=== PATIENT | male | born 1950 | race Caucasian/White ===

== ENCOUNTER 2018-01-22 11:39 | Emergency (ER) | payer SELFPAY ==
[~2018-01-22] VITALS: Ht 177.8 cm; Wt 95.2 kg
[~2018-01-22 11:39] MED LIST: ASPI81CH PO; ASPI81EC; LEVO750 PO; MAGCHL64ER PO; MULVITMIND PO; OSEL75CA PO; POTA8 PO; TUSSIN DM SYRU PO; Tylenol325 MG PO
== END 2018-01-22 12:44 | disposition home or self-care (01) ==
LOC: ER 11:39
DX: M79.89 Other specified soft tissue disorders (principal); Z79.82 Long term (current) use of aspirin; Z79.899 Other long term (current) drug therapy; F17.210 Nicotine dependence, cigarettes, uncomplicated
CPT/HCPCS: 99281

== ENCOUNTER 2020-11-28 09:32 | Day surgery (SDC) | payer MEDICARE ==
[~2020-11-28] VITALS: Ht 177.8 cm; Wt 113.5 kg
--- NOTE | 2020-11-28 10:10 | NUR ---
History, Chart, Medications and Allergies reviewed before start of procedure. Patient states colon prep results clear. Patient States Post-Procedure ride home has been arranged.
[2020-11-28] MEDS ORDERED: ATOR40TA PO (10:17)
[2020-11-28] MEDS ORDERED: Nexium40 MG PO (10:17)
--- NOTE | 2020-11-28 10:49 | NUR ---
11/28/20 1049 Bebeto Gonzalez PATIENT DETERMINED TO BE ASA APPROPRIATE FOR PROPOFOL SEDATION PRIOR TO START OF PROCEDURE BY DR. PIERRE. Bite Block Placed. 3-LEAD EKG REVIEWED WITH PHYSICIAN PRIOR TO START OF PROCEDURE. Patient to ENDO 1. History, Chart, Medications and Allergies reviewed before start of procedure. HURRICAINE SPRAY TO OROPHARYX. MONITOR INTACT WITH CONTINUOUS PULSE OXIMETRY AND INTERMITTENT BP. O2 VIA N/C INTACT THROUGHOUT SEDATION/PROCEDURE.
== END 2020-11-28 22:45 | disposition home or self-care (01) ==
LOC: ORSCMMR 09:32 → EDBD 09:32 → ORSCMMR 09:33 → ORD 10:30 → ORSCMMR 22:45
PROVIDERS: Internal Medicine Gastroenterology
PROC: 0DB58ZX Excision of Esophagus, Via Natural or Artificial Opening Endoscopic, Diagnostic (ICD-10-PCS; principal; 2020-11-28 10:30)
PROC: 0DB48ZX Excision of Esophagogastric Junction, Via Natural or Artificial Opening Endoscopic, Diagnostic (ICD-10-PCS; principal; 2020-11-28 10:30)
PROC: 0DB68ZX Excision of Stomach, Via Natural or Artificial Opening Endoscopic, Diagnostic (ICD-10-PCS; principal; 2020-11-28 10:30)
PROC: 0DBM8ZX Excision of Descending Colon, Via Natural or Artificial Opening Endoscopic, Diagnostic (ICD-10-PCS; 2020-11-28 10:30)
PROC: 0DBP8ZX Excision of Rectum, Via Natural or Artificial Opening Endoscopic, Diagnostic (ICD-10-PCS; 2020-11-28 10:30)
PROC: 0DBK8ZX Excision of Ascending Colon, Via Natural or Artificial Opening Endoscopic, Diagnostic (ICD-10-PCS; 2020-11-28 10:30)
PROC: 0DBL8ZX Excision of Transverse Colon, Via Natural or Artificial Opening Endoscopic, Diagnostic (ICD-10-PCS; 2020-11-28 10:30)
PROC: 0DBN8ZZ Excision of Sigmoid Colon, Via Natural or Artificial Opening Endoscopic (ICD-10-PCS; 2020-11-28 10:30)
DX: K21.9 Gastro-esophageal reflux disease without esophagitis (principal); Z12.11 Encounter for screening for malignant neoplasm of colon; K62.1 Rectal polyp; K63.5 Polyp of colon; D12.5 Benign neoplasm of sigmoid colon; I25.10 Atherosclerotic heart disease of native coronary artery without angina pectoris; I10 Essential (primary) hypertension; Z79.82 Long term (current) use of aspirin; Z79.899 Other long term (current) drug therapy
CPT/HCPCS: 88305; 88342; A9270; J2704; J7120

== ENCOUNTER 2021-03-11 20:27 | Emergency (ER) | payer MEDICARE ==
[~2021-03-11] VITALS: Ht 180.3 cm; Wt 108.9 kg
[~2021-03-11 20:27] MED LIST changes: +ATOR40TA PO; +Nexium40 MG PO
[2021-03-11 20:53] LABS: BASOPHILS ABSOLUTE AUTO 0.07 K/mm3 (0.00-0.23); BASOPHILS PERCENT AUTO 1 % (0-2); EOSINOPHILS ABSOLUTE AUTO 0.36 K/mm3 (0.00-0.68); EOSINOPHILS PERCENT AUTO 4 % (0-6); Hematocrit 48.3 % (37.0-53.0); Hemoglobin 15.7 g/dL (13.5-17.5); IMMATURE GRAN ABSOLUTE AUTO 0.04 K/mm3 (0.00-0.10); IMMATURE GRAN PERCENT AUTO 0 % (0-1); LYMPHOCYTES ABSOLUTE AUTO 3.04 K/mm3 (0.84-5.20); LYMPHOCYTES PERCENT AUTO 33 % (21-46); MONOCYTES ABSOLUTE AUTO 0.81 K/mm3 (0.16-1.47); MONOCYTES PERCENT AUTO 9 % (4-13); Mean Corpuscular HGB 31.7 pg (26.0-34.0); Mean Corpuscular HGB Conc 32.5 g/dL (31.5-36.5); Mean Corpuscular Volume 98 fL (80-100); Mean Platelet Volume 10.2 fL (9.1-12.4); NEUTROPHILS ABSOLUTE AUTO 4.78 K/mm3 (1.96-9.15); NEUTROPHILS PERCENT AUTO 53 % (41-73); Platelet Count 175 K/mm3 (150-400); RDW Coefficient Variation 12.7 % (11.7-14.2); RDW Standard Deviation 45.5 fL (35.1-46.3); Red Blood Cell Count 4.95 M/mm3 (4.30-5.90)
[2021-03-11 21:14] LABS: Alanine Aminotransfer (ALT/SGP 52 U/L (12-78); Albumin, Blood 3.7 g/dL (3.4-5.0); Albumin/Globulin Ratio 0.9 (0.8-1.8); Alk Phos 122 U/L (50-136); Anion Gap 5 mmol/L (6-16); Aspartate Aminotrans (AST/SGOT 35 U/L (12-37); Bilirubin, Total 0.4 mg/dL (0.1-1.0); Blood Urea Nitrogen 18 mg/dL (8-24); Bun/Creatinine Ratio 19.5 (12.0-20.0); CO2, Blood 29 mmol/L (21-32); Calcium, Blood 8.9 mg/dL (8.5-10.1); Chloride, Blood 103 mmol/L (98-108); Creatinine, Blood 0.92 mg/dL (0.60-1.20); Globulin, Blood 4.1 g/dL (2.2-4.0); Glomerular Filtration Rate >60 (60-); Glucose, Blood 147 mg/dL (70-99); Potassium, Blood 4.1 mmol/L (3.5-5.5); Sodium, Blood 137 mmol/L (136-145); Total Protein, Blood 7.8 g/dL (6.4-8.2); Troponin I <0.015 ng/mL (0.000-0.040)
[2021-03-11 21:20] LABS: Prothrombin Time Results 10.8 Sec (9.7-11.5)
== END 2021-03-11 22:42 | disposition home or self-care (01) ==
LOC: ER 20:27 → EDBD 20:27 → ER 22:42
PROVIDERS: Physician Assistant
DX: S44.92XA Injury of unspecified nerve at shoulder and upper arm level, left arm, initial encounter (principal); F17.210 Nicotine dependence, cigarettes, uncomplicated; Z79.82 Long term (current) use of aspirin; Z79.899 Other long term (current) drug therapy; X58.XXXA Exposure to other specified factors, initial encounter
CPT/HCPCS: 36415; 70450; 70496; 80053; 84484; 85025; 85610; 93005; 93010; 99284-25; Q9967

== ENCOUNTER 2021-07-24 06:09 | Day surgery (SDC) | payer MEDICARE ==
[2021-07-24] MEDS ORDERED: Bisoprolol Fumar5 MG PO (07:04)
[2021-07-24] MEDS ORDERED: LISI5 PO (07:05)
[2021-07-24] MEDS ORDERED: CLOP75 PO (07:05)
--- NOTE | 2021-07-24 08:48 | NUR ---
PT AWAKE AND VERBALIZING WELL. PT ABLE TO TAKE PO LIQ /S DIFFICULTY. IV REMOVED. PT VERBLIZED UNDERSTANDING OF WRITTEN AND VERBAL D/C INST.
== END 2021-07-24 23:09 | disposition home or self-care (01) ==
LOC: MHTC 06:09
DX: G45.9 Transient cerebral ischemic attack, unspecified (principal); I47.2 Ventricular tachycardia; I25.10 Atherosclerotic heart disease of native coronary artery without angina pectoris; I10 Essential (primary) hypertension; J44.9 Chronic obstructive pulmonary disease, unspecified; E78.5 Hyperlipidemia, unspecified; Z95.1 Presence of aortocoronary bypass graft
CPT/HCPCS: 93312; 93325; A9270; J2250; J2704; J7030

== ENCOUNTER 2024-08-26 20:24 | Observation (INO) | payer MEDICARE ==
[~2024-08-26] VITALS: Ht 177.8 cm; Wt 82.5 kg
[~2024-08-26 20:24] MED LIST changes: +Bisoprolol Fumar5 MG PO; +CLOP75 PO; +LISI5 PO; +METO50ER PO
[2024-08-26] MEDS ORDERED: Aspirin325 MG PO (21:11)
[2024-08-26] MEDS ORDERED: ALBU90OI INH (21:12)
[2024-08-26] MEDS ORDERED: ATOR40TA PO (21:13)
[2024-08-26] MEDS ORDERED: GABA100 PO (21:13)
[2024-08-26 21:14] LABS: BASOPHILS ABSOLUTE AUTO 0.06 K/mm3 (0.00-0.23); BASOPHILS PERCENT AUTO 1 % (0-2); EOSINOPHILS ABSOLUTE AUTO 0.17 K/mm3 (0.00-0.68); EOSINOPHILS PERCENT AUTO 2 % (0-6); Hematocrit 46.1 % (37.0-53.0); Hemoglobin 15.5 g/dL (13.5-17.5); IMMATURE GRAN ABSOLUTE AUTO 0.02 K/mm3 (0.00-0.10); IMMATURE GRAN PERCENT AUTO 0 % (0-1); LYMPHOCYTES ABSOLUTE AUTO 2.32 K/mm3 (0.84-5.20); LYMPHOCYTES PERCENT AUTO 30 % (21-46); MONOCYTES PERCENT AUTO 9 % (4-13); Mean Corpuscular HGB 32.3 pg (26.0-34.0); Mean Corpuscular HGB Conc 33.6 g/dL (31.5-36.5); Mean Corpuscular Volume 96 fL (80-100); Mean Platelet Volume 11.2 fL (9.1-12.4); NEUTROPHILS PERCENT AUTO 57 % (41-73); Platelet Count 106 K/mm3 (150-400); RDW Coefficient Variation 13.5 % (11.7-14.2); RDW Standard Deviation 48.4 fL (35.1-46.3); White Blood Cell Count 7.67 K/mm3 (4.00-11.30)
[2024-08-26] MEDS ORDERED: ESOM20 PO (21:14)
[2024-08-26] MEDS ORDERED: JARDIANCE10 MG PO (21:14)
[2024-08-26] MEDS ORDERED: SPIRIVA RESPIMAT4 G3 INH (21:15)
[2024-08-26] MEDS ORDERED: TADA10TA (21:16)
[2024-08-26] MEDS ORDERED: METO100ER PO (21:17)
[2024-08-26] MEDS ORDERED: METO50ER PO (21:17)
[2024-08-26 21:25] LABS: International Normalized Ratio 1.13
[2024-08-26 21:43] LABS: Albumin, Blood 3.2 g/dL (3.4-5.0); Albumin/Globulin Ratio 0.8 (0.8-1.8); Bilirubin, Total 0.6 mg/dL (0.1-1.0); Bun/Creatinine Ratio 17.8 (12.0-20.0); Creatinine, Blood 0.79 mg/dL (0.60-1.20); Globulin, Blood 4.1 g/dL (2.2-4.0); Potassium, Blood 4.1 mmol/L (3.5-5.5); Total Protein, Blood 7.3 g/dL (6.4-8.2)
[2024-08-26] MEDS ORDERED: FLU VACC TS2024-25(6MOS UP)/PF 45 MCG/0.5 ML SYRINGE IM ONE (22:45)
[2024-08-26] MEDS ORDERED: Ondansetron HCl 2 MG / ML 2ML Vial IV PRN (22:45)
[2024-08-26] MEDS ORDERED: Acetaminophen 325 MG TABLET PO PRN (22:45)
[2024-08-26] MEDS ORDERED: Tiotropium Bromide 2.5 MCG/ACT MIST INHAL (10 ACT/4 GM) INH SCH (22:50)
[2024-08-26] MEDS ORDERED: Gabapentin 100 MG Cap PO PRN (22:50)
[2024-08-27 00:37] VITALS: BP 122/98
[2024-08-27] MEDS ORDERED: Albuterol HFA200 ACT/6.7 GM INH INH PRN (00:45)
--- NOTE | 2024-08-27 04:00 | NUR ---
SHIFT SUMMARY PATIENT HAS SLEPT IN LONG INTERVALS SINCE ADMISSION. EVEN THOUGH HE IS SOUND ASLEEP HIS HR ON TELE IS 120'S AND IS ST @ 122.
--- NOTE | 2024-08-27 04:15 | NUR ---
REGARDING SUSTAINED TACHYCARDIC HR SINCE ADMIT TO THE FLOOR. UNLESS THE RATE CREEPS UP TO THE 130'S IT IS ALRIGHT TO JUST WATCH AND NOT CONTACT HOSPITALIST, PER LOW THAPA, CHARGE.
[2024-08-27 04:52] VITALS: BP 108/89
[2024-08-27 05:11] LABS: BASOPHILS ABSOLUTE AUTO 0.05 K/mm3 (0.00-0.23); BASOPHILS PERCENT AUTO 1 % (0-2); EOSINOPHILS ABSOLUTE AUTO 0.18 K/mm3 (0.00-0.68); EOSINOPHILS PERCENT AUTO 3 % (0-6); Hematocrit 46.2 % (37.0-53.0); Hemoglobin 15.4 g/dL (13.5-17.5); IMMATURE GRAN ABSOLUTE AUTO 0.02 K/mm3 (0.00-0.10); IMMATURE GRAN PERCENT AUTO 0 % (0-1); LYMPHOCYTES ABSOLUTE AUTO 2.32 K/mm3 (0.84-5.20); LYMPHOCYTES PERCENT AUTO 32 % (21-46); MONOCYTES ABSOLUTE AUTO 0.75 K/mm3 (0.16-1.47); MONOCYTES PERCENT AUTO 10 % (4-13); Mean Corpuscular HGB 32.2 pg (26.0-34.0); Mean Corpuscular HGB Conc 33.3 g/dL (31.5-36.5); Mean Corpuscular Volume 97 fL (80-100); Mean Platelet Volume 10.9 fL (9.1-12.4); NEUTROPHILS ABSOLUTE AUTO 3.99 K/mm3 (1.96-9.15); NEUTROPHILS PERCENT AUTO 55 % (41-73); Platelet Count 99 K/mm3 (150-400); RDW Coefficient Variation 13.5 % (11.7-14.2); RDW Standard Deviation 48.4 fL (35.1-46.3); Red Blood Cell Count 4.79 M/mm3 (4.30-5.90); White Blood Cell Count 7.31 K/mm3 (4.00-11.30)
[2024-08-27 05:41] LABS: CHOL/HDL RATIO 2.6; Cholesterol 95 mg/dL (50-200); HDL Cholesterol 36 mg/dL (>39); LDL/HDL RATIO 1.1; Low Density Lipoprotein Chol 41 mg/dL (0-110); Triglycerides 89 mg/dL (30-160); Very Low Density Lipoprot Chol 18 mg/dL (6-32)
[2024-08-27 05:42] LABS: Albumin, Blood 2.9 g/dL (3.4-5.0); Albumin/Globulin Ratio 0.7 (0.8-1.8); Bilirubin, Total 0.7 mg/dL (0.1-1.0); Bun/Creatinine Ratio 16.2 (12.0-20.0); Calcium, Blood 9.1 mg/dL (8.5-10.1); Creatinine, Blood 0.74 mg/dL (0.60-1.20); Total Protein, Blood 6.9 g/dL (6.4-8.2)
[2024-08-27] MEDS ORDERED: Pantoprazole Sodium 40 MG Tab PO SCH (06:00)
[2024-08-27 07:17] VITALS: BP 105/76
--- NOTE | 2024-08-27 08:33 | NUR ---
PATIENT HAS OUTPATIENT PFT SCHEDULED @ 1000 TODAY; HAS BEEN WAITING FOR THIS APPT FOR >1 MONTH TODAY. WONDERING IF THIS CAN BE DONE WHILE HERE. LEFT MESSAGE WITH MIKEY Epps RT. CALL TO DR SALGADO WHO DOES NOT BELIEVE PATIENT WILL BE DISCHARGED BEFORE 1000. DAUGHTER NOTIFIED AND WILL LIKELY NEED TO RESCHEDULE.
[2024-08-27] MEDS ORDERED: Clopidogrel Bisulfate 75 MG Tab PO SCH (09:00)
[2024-08-27] MEDS ORDERED: Atorvastatin 40 MG Tab PO SCH (09:00)
[2024-08-27] MEDS ORDERED: Empagliflozin 10 MG TAB PO SCH (09:00)
[2024-08-27] MEDS ORDERED: Metoprolol Tartrate 50 MG Tab PO SCH (09:00)
[2024-08-27] MEDS ORDERED: Aspirin 81 MG Chew PO SCH (09:00)
[2024-08-27] MEDS ORDERED: Metoprolol Succinate 50 MG TABCR PO SCH ×2 (09:00→21:00)
[2024-08-27] MEDS ORDERED: ASPI81CH PO (15:08)
[2024-08-27] MEDS ORDERED: ELIQUIS5 M2 PO (15:09)
--- NOTE | 2024-08-27 16:11 | NUR ---
DISCHARGE PT DISCHARGED WITH DAUGHTER THIS AFTERNOON. IV REMOVED, ALL BELONGINGS WITH PATIENT AND EDUCATION PROVIDED. PT LEFT IN WHEEL CHAIR TO DAUGHTER CAR
== END 2024-08-27 15:34 | disposition home or self-care (01) ==
LOC: ER 20:24 → MEDS 20:25
PROVIDERS: Student in an Organized Health Care Education/Training Program; ADMIT Student in an Organized Health Care Education/Training Program
DX: R29.810 Facial weakness (principal); R53.1 Weakness; R20.0 Anesthesia of skin; R91.8 Other nonspecific abnormal finding of lung field; I25.10 Atherosclerotic heart disease of native coronary artery without angina pectoris; J44.9 Chronic obstructive pulmonary disease, unspecified; K21.9 Gastro-esophageal reflux disease without esophagitis; I10 Essential (primary) hypertension; E78.5 Hyperlipidemia, unspecified; I48.91 Unspecified atrial fibrillation; Z95.1 Presence of aortocoronary bypass graft; Z86.73 Personal history of transient ischemic attack (TIA), and cerebral infarction without residual deficits; Z79.82 Long term (current) use of aspirin; Z79.899 Other long term (current) drug therapy; Z79.84 Long term (current) use of oral hypoglycemic drugs
CPT/HCPCS: 36415; 70450; 70551; 80053; 80061; 83036; 83735; 85025; 85610; 93005; 93010; 94060; 94726; 94729; 99285-25; A9270; C8929; G0378; Q9957

== ENCOUNTER 2024-11-19 12:44 | Emergency (ER) | payer MEDICARE ==
[~2024-11-19] VITALS: Ht 177.8 cm; Wt 80.7 kg
[~2024-11-19 12:44] MED LIST changes: +ALBU90OI INH; +Aspirin325 MG PO; +ELIQUIS5 M2 PO; +ESOM20 PO; +GABA100 PO; +JARDIANCE10 MG PO; +METO100ER PO; +SPIRIVA RESPIMAT4 G3 INH; +TADA10TA
[2024-11-19] MEDS ORDERED: Amoxicillin875 MG PO (14:45)
[2024-11-19 15:00] VITALS: BP 122/96
[2024-11-19] MEDS ORDERED: PRED20 PO (22:01)
[2024-11-20] MEDS ORDERED: METO50ER PO (08:35)
[2024-11-20] MEDS ORDERED: Amiodarone HCl200 MG PO (08:36)
== END 2024-11-19 15:25 | disposition home or self-care (01) ==
LOC: ER 12:44
DX: J18.9 Pneumonia, unspecified organism (principal); E78.5 Hyperlipidemia, unspecified; I10 Essential (primary) hypertension; K21.9 Gastro-esophageal reflux disease without esophagitis; J44.9 Chronic obstructive pulmonary disease, unspecified; F17.210 Nicotine dependence, cigarettes, uncomplicated; Z86.73 Personal history of transient ischemic attack (TIA), and cerebral infarction without residual deficits; Z79.82 Long term (current) use of aspirin; Z79.899 Other long term (current) drug therapy
CPT/HCPCS: 71260; 99284-25; Q9967

== ENCOUNTER 2024-11-19 20:14 | Inpatient (IN) | payer MEDICARE ==
[~2024-11-19] VITALS: Ht 177.8 cm; Wt 81.0 kg
[~2024-11-19 20:14] MED LIST changes: +Amoxicillin875 MG PO
[2024-11-19 20:53] LABS: BASOPHILS ABSOLUTE AUTO 0.12 K/mm3 (0.00-0.23); BASOPHILS PERCENT AUTO 1 % (0-2); EOSINOPHILS PERCENT AUTO 2 % (0-6); Hematocrit 41.4 % (37.0-53.0); Hemoglobin 13.9 g/dL (13.5-17.5); IMMATURE GRAN ABSOLUTE AUTO 0.02 K/mm3 (0.00-0.10); IMMATURE GRAN PERCENT AUTO 0 % (0-1); LYMPHOCYTES PERCENT AUTO 24 % (21-46); MONOCYTES ABSOLUTE AUTO 0.76 K/mm3 (0.16-1.47); MONOCYTES PERCENT AUTO 8 % (4-13); Mean Corpuscular HGB 32.3 pg (26.0-34.0); Mean Corpuscular HGB Conc 33.6 g/dL (31.5-36.5); Mean Corpuscular Volume 96 fL (80-100); Mean Platelet Volume 10.4 fL (9.1-12.4); NEUTROPHILS ABSOLUTE AUTO 5.75 K/mm3 (1.96-9.15); NEUTROPHILS PERCENT AUTO 64 % (41-73); Platelet Count 144 K/mm3 (150-400); RDW Coefficient Variation 14.1 % (11.7-14.2); White Blood Cell Count 9.05 K/mm3 (4.00-11.30)
[2024-11-19] MEDS ORDERED: MethylPREDNISolone Sod Succ 125 MG Vial IV ONE (21:30)
[2024-11-19] MEDS ORDERED: PRED20 PO (22:01)
[2024-11-19 22:46] LABS: Influenza A, PCR NEGATIVE (NEGATIVE); Influenza B, PCR NEGATIVE (NEGATIVE); Resp Syncytial Virus, PCR NEGATIVE (NEGATIVE); SARS-Cov-2 (COVID-19) PCR, MMC NEGATIVE (NEGATIVE)
[2024-11-19 23:39] LABS: Hemoglobin 13.5 g/dL (13.5-17.5)
[2024-11-19] MEDS ORDERED: Acetaminophen 325 MG TABLET PO PRN (23:45)
[2024-11-19] MEDS ORDERED: FLU VACC TS2024-25(6MOS UP)/PF 45 MCG/0.5 ML SYRINGE IM ONE (23:45)
[2024-11-19] MEDS ORDERED: Ondansetron 4 MG TAB PO PRN (23:45)
[2024-11-20] MEDS ORDERED: Albuterol 2.5 MG/3 ML VIAL INH PRN (00:05)
[2024-11-20] MEDS ORDERED: Tiotropium Bromide 2.5 MCG/ACT MIST INHAL (10 ACT/4 GM) INH SCH ×2 (00:05→12:20)
[2024-11-20] MEDS ORDERED: Lactated Ringer's 1,000 ML IV SCH (00:10)
[2024-11-20] MEDS ORDERED: Lactated Ringer's 1,000 ML IV ONE (01:15)
[2024-11-20] MEDS ORDERED: Ipratropium/Albuterol SulF 2.5-0.5MG/3 ML Amp INH SCH (01:20)
[2024-11-20 04:01] VITALS: BP 128/90
[2024-11-20 05:01] LABS: BASOPHILS ABSOLUTE AUTO 0.07 K/mm3 (0.00-0.23); BASOPHILS PERCENT AUTO 1 % (0-2); EOSINOPHILS PERCENT AUTO 3 % (0-6); Hematocrit 40.4 % (37.0-53.0); Hemoglobin 13.7 g/dL (13.5-17.5); IMMATURE GRAN ABSOLUTE AUTO 0.02 K/mm3 (0.00-0.10); IMMATURE GRAN PERCENT AUTO 0 % (0-1); LYMPHOCYTES ABSOLUTE AUTO 0.83 K/mm3 (0.84-5.20); LYMPHOCYTES PERCENT AUTO 12 % (21-46); MONOCYTES ABSOLUTE AUTO 0.05 K/mm3 (0.16-1.47); MONOCYTES PERCENT AUTO 1 % (4-13); Mean Corpuscular HGB 32.4 pg (26.0-34.0); Mean Corpuscular HGB Conc 33.9 g/dL (31.5-36.5); Mean Corpuscular Volume 96 fL (80-100); Mean Platelet Volume 10.5 fL (9.1-12.4); NEUTROPHILS ABSOLUTE AUTO 5.74 K/mm3 (1.96-9.15); NEUTROPHILS PERCENT AUTO 83 % (41-73); Platelet Count 148 K/mm3 (150-400); RDW Coefficient Variation 14.2 % (11.7-14.2); RDW Standard Deviation 49.8 fL (35.1-46.3); Red Blood Cell Count 4.23 M/mm3 (4.30-5.90); White Blood Cell Count 6.91 K/mm3 (4.00-11.30)
[2024-11-20 05:41] LABS: Albumin, Blood 3.4 g/dL (3.4-5.0); Albumin/Globulin Ratio 0.8 (0.8-1.8); Bun/Creatinine Ratio 36.8 (12.0-20.0); Creatinine, Blood 0.73 mg/dL (0.60-1.20); Globulin, Blood 4.3 g/dL (2.2-4.0); Total Protein, Blood 7.7 g/dL (6.4-8.2)
[2024-11-20] MEDS ORDERED: Pantoprazole Sodium 40 MG Tab PO SCH (06:00)
[2024-11-20 08:21] VITALS: BP 119/85
[2024-11-20] MEDS ORDERED: METO50ER PO (08:35)
[2024-11-20] MEDS ORDERED: Amiodarone HCl200 MG PO (08:36)
[2024-11-20] MEDS ORDERED: Metoprolol Succinate 50 MG TABCR PO SCH (09:00)
[2024-11-20] MEDS ORDERED: Empagliflozin 10 MG TAB PO SCH (09:00)
[2024-11-20] MEDS ORDERED: Nicotine 21 MG PATCH TOP SCH (09:00)
[2024-11-20] MEDS ORDERED: Aspirin 81 MG Chew PO SCH (09:00)
[2024-11-20] MEDS ORDERED: Atorvastatin 40 MG Tab PO SCH (09:00)
[2024-11-20 11:47] VITALS: BP 122/84
[2024-11-20] MEDS ORDERED: Benzonatate 100 MG Cap PO PRN (12:05)
[2024-11-20 16:12] VITALS: BP 103/87
--- NOTE | 2024-11-20 18:42 | NUR ---
SHIFT SUMMARY PT A/OX AND COOPERATIVE OF CARE. PT ABLE TO EXPRESS NEEDS AND CALLS APPROPIATE. PT AFLUTTER ALL SHIFT 90-100'S, NO REPORT OF CHEST PAIN/PRESSURE. PT ON 3-5L NC, SATS IN THE 90'S AT REST. SATS DROP TO MID 80'S WITH COUGHING FITS. PT CONTINUED TO COUGH UP BLOOD THIS SHIFT, PT REPORTS BLOOD IS STARTING TO CLEAR, SUCTION SETUP AND PT USING INDEPENDENTLY. OTHER VSS THROGHOUT SHIFT. PT INDEPENDENT IN ROOM AND BED. PT DAUGHTER PRESENT FOR HALF OF SHIFT AND UPDATED ON PLAN OF CARE. PT SEEN BY CELLO TEACHER TODAY, SEE MD NOTES. THINNERS STOPPED PER ORDERS.
[2024-11-20 19:39] VITALS: BP 128/85
[2024-11-20] MEDS ORDERED: MethylPREDNISolone Sod Succ 40 MG VIAL IV SCH (21:00)
--- NOTE | 2024-11-20 21:12 | NUR ---
ASSUMED CARE OF THIS PT AT 1900. PT IS A/O X4, ABLE TO MAKE NEEDS KNOWN. REPOSTIONS SELF IN BED. SELF TRANSFER TO THE BATHROOM AND BACK. PT ON 3 LITERS NC, SATTING 91% AND ABOVE. BP STABLE DENIES CHEST PAIN OR PRESSURE. SELF SUCTIONING BRIGHT RED BLOOD. REPORT GIVEN TO JULIO CESAR RIVERA TO TAKE OVER PT.
--- NOTE | 2024-11-20 22:15 | NUR ---
UPDATE: THIS RN ASSUMING CARE OF PT. REPORT FROM MIGUEL BRADEN.
[2024-11-21 00:56] VITALS: BP 101/62
[2024-11-21 03:40] VITALS: BP 101/90
[2024-11-21 08:49] VITALS: BP 118/102
[2024-11-21] MEDS ORDERED: BENZ100A PO (13:23)
[2024-11-21] MEDS ORDERED: IPRAT-ALBUT 0.5-3 ML INH (13:24)
[2024-11-21] MEDS ORDERED: NICO21TP TOP (13:24)
--- NOTE | 2024-11-21 13:50 | NUR ---
DISCHARGE: PATIENT AND DAUGHTERS VERBALIZE UNDERSTANDING OF DISCHARGE INSTRUCTIONS. PATIENT HOME WITH DAUGHTER VIA WC WITH HOME OXYGEN AND NEBULIZERS.
== END 2024-11-21 13:34 | disposition home or self-care (01) | DRG 180 ==
LOC: ER 20:14 → PCU 20:15
PROVIDERS: Emergency Medicine; Student in an Organized Health Care Education/Training Program; ADMIT Student in an Organized Health Care Education/Training Program
DX: C34.92 Malignant neoplasm of unspecified part of left bronchus or lung (principal); J18.9 Pneumonia, unspecified organism; J96.01 Acute respiratory failure with hypoxia; R04.2 Hemoptysis; I50.22 Chronic systolic (congestive) heart failure; J44.1 Chronic obstructive pulmonary disease with (acute) exacerbation; J44.0 Chronic obstructive pulmonary disease with (acute) lower respiratory infection; I48.92 Unspecified atrial flutter; I48.91 Unspecified atrial fibrillation; Z86.73 Personal history of transient ischemic attack (TIA), and cerebral infarction without residual deficits; F17.210 Nicotine dependence, cigarettes, uncomplicated; I25.10 Atherosclerotic heart disease of native coronary artery without angina pectoris; Z95.1 Presence of aortocoronary bypass graft; Z79.899 Other long term (current) drug therapy; Z90.49 Acquired absence of other specified parts of digestive tract; Z90.89 Acquired absence of other organs; Z79.01 Long term (current) use of anticoagulants; Z79.82 Long term (current) use of aspirin; Z79.2 Long term (current) use of antibiotics; Z86.19 Personal history of other infectious and parasitic diseases; Z98.890 Other specified postprocedural states; I44.30 Unspecified atrioventricular block; Z99.81 Dependence on supplemental oxygen
CPT/HCPCS: 0241U; 36415; 71046; 80053; 82947; 83735; 83880; 85014; 85018; 85025; 93005; 93010; 94640; 94664; 94762; 99285-25; A9270; G0378; J2919; J7120

== ENCOUNTER → 2025-04-28 | Outpatient (CLI) | payer MEDICARE ==
[~2025-04-28] MED LIST changes: +Amiodarone HCl200 MG PO; +BENZ100A PO; +IPRAT-ALBUT 0.5-3 ML INH; +NICO21TP TOP; +PRED20 PO
== END ==
LOC: LAB 08:00 → LAB SHORT 08:00
DX: R19.7 Diarrhea, unspecified (principal)
CPT/HCPCS: 87015; 87045; 87046; 87205; 87899

== ENCOUNTER → 2025-05-31 | Outpatient (CLI) | payer MEDICARE ==
[2025-06-01 14:46] LABS: C DIFFICILE DNA NEGATIVE (Negative)
== END ==
LOC: LAB 14:00 → LAB SHORT 14:00
PROVIDERS: Registered Nurse Oncology
DX: R19.7 Diarrhea, unspecified (principal)
CPT/HCPCS: 87493